=== PATIENT | female | born 1980 ===

== ENCOUNTER 2022-02-08 09:25 | Outpatient (CLI) | payer OTHER | END 2022-02-08 09:33 | disposition home or self-care (01) | LOC: MAMO-SONO 09:25 | PROVIDERS: ATTEND Personal Emergency Response Attendant | DX: Z12.31 Encounter for screening mammogram for malignant neoplasm of breast (principal) ==

== ENCOUNTER 2022-09-28 12:56 | Outpatient (CLI) | payer OTHER | END 2022-09-28 13:04 | disposition home or self-care (01) | LOC: SONOGRAMA 12:56 | DX: R22.2 Localized swelling, mass and lump, trunk (principal) ==

== ENCOUNTER 2025-03-26 09:10 | Outpatient (CLI) | payer OTHER | END 2025-03-26 09:15 | disposition home or self-care (01) | LOC: MAMO-SONO 09:10 | DX: N63.22 Unspecified lump in the left breast, upper inner quadrant (principal); N63.10 Unspecified lump in the right breast, unspecified quadrant; N92.0 Excessive and frequent menstruation with regular cycle ==

== ENCOUNTER 2025-05-08 12:41 | Outpatient (CLI) | payer OTHER | END 2025-05-08 12:43 | disposition home or self-care (01) | LOC: RAD 12:41 | DX: M54.50 Low back pain, unspecified (principal) ==